=== PATIENT | male | born 2000 | race Caucasian/White ===

== ENCOUNTER 2022-05-29 14:37 | Emergency (ER) | payer MEDICAID ==
[~2022-05-29] VITALS: Ht 167.6 cm; Wt 81.6 kg
[2022-05-29 14:54] VITALS: BP_SYST 144
== END 2022-05-29 17:15 | disposition left against medical advice (07) ==
LOC: SED 14:37
DX: R05.9 Cough, unspecified (principal); R09.81 Nasal congestion; R50.9 Fever, unspecified; Z53.21 Procedure and treatment not carried out due to patient leaving prior to being seen by health care provider; Z20.822 Contact with and (suspected) exposure to COVID-19
CPT/HCPCS: 36415